=== PATIENT | male | born 1975 | race Caucasian/White ===

== ENCOUNTER 2016-10-15 12:25 | Emergency (ER) | payer OTHER ==
[~2016-10-15] VITALS: Ht 180.3 cm; Wt 83.9 kg
[~2016-10-15 12:25] MED LIST: PROM25TA10 PO
[2016-10-15] MEDS ORDERED: CEPH-263 PO (14:04)
[2016-10-15] MEDS ORDERED: CLIN300C8 PO (14:04)
--- NOTE | 2016-10-15 14:05 | PHYS DOC ---
Past Medical History Past Medical History: No Pertinent History Past Surgical History: Tonsillectomy Additional Information: 0.5 PPD Alcohol Use: Occasionally Drug Use: None Adult General Chief Complaint Chief Complaint: ELBOW PROBLEM HPI HPI 40-year-old male presenting with pain and redness in his right elbow. This started approximately 2 days ago. The pain is mild intermittent worse with movement of the extremity. And without alleviating factors. He denies fevers home. He denies nausea vomiting numbness weakness or tingling. Review of systems is negative for chest pain shortness of breath, nausea vomiting fevers or chills. All other review of systems is negative unless otherwise noted in history of present illness. ED course: 40-year-old gentleman presenting with redness and swelling in his right elbow. Pertinent physical examination shows erythema of the external flexor region of his elbow consistent with cellulitis versus bursitis. Patient was prescribed oral clindamycin to follow-up with primary care doctor in the next 2-3 days for reevaluation. The patient was then discharged home in stable condition to follow up with their primary care physician over the next 2-3 days. They were to return if their symptoms worsened or if they were concerned for any reason. Ieau-ne-wemp discharge instructions and return precautions were given. Patient's questions were answered to their satisfaction. Patient is comfortable plan. Review of Systems Review of Systems SEE ABOVE. Allergies Allergies Allergies Coded Allergies Type Severity Reaction Last Updated Verified No Known Drug Allergies 02/29/16 No Physical Exam Physical Exam SEE ABOVE Constitutional: Well developed, well nourished, no acute distress, non-toxic appearance. [] HENT: Normocephalic, atraumatic, bilateral external ears normal, oropharynx moist, no oral exudates, nose normal. [] Eyes: PERRLA, EOMI, conjunctiva normal, no discharge. [] Neck: Normal range of motion, no tenderness, supple, no stridor. [] Cardiovascular:Heart rate regular rhythm, no murmur [] Lungs & Thorax: Bilateral breath sounds clear to auscultation [] Abdomen: Bowel sounds normal, soft, no tenderness, no masses, no pulsatile masses. [] Skin: Warm, dry, no erythema, no rash. [] Back: No tenderness, no CVA tenderness. [] Extremities: Right upper extremity is warm and well perfused with palpable pulse. 2 second cap refill distally with normal sensation of the hand. Right elbow exam see above. Minimal pain with passive extension of the patient's elbow. Patient is able to flex his elbow without pain. Macular rash on the external surface of the elbow. Neurologic: Alert and oriented X 3, normal motor function, normal sensory function, no focal deficits noted. [] Psychologic: Affect normal, judgement normal, mood normal. [] Current Patient Data Vital Signs Vital Signs Date Time Temp Pulse Resp B/P (MAP) Pulse Ox O2 Delivery O2 Flow Rate FiO2 10/15/16 12:43 98.6 74 14 120/81 (94) 98 Room Air 98.6 EKG EKG [] Radiology/Procedures Radiology/Procedures [] Course & Med Decision Making Course & Med Decision Making Pertinent Labs and Imaging studies reviewed. (See chart for details) [] Dragon Disclaimer Dragon Disclaimer This electronic medical record was generated, in whole or in part, using a voice recognition dictation system. Departure Departure Impression: Primary Impression: Cellulitis Additional Impression: Bursitis Disposition: HOME, SELF-CARE Condition: STABLE Referrals: NO PCP (PCP) MORALES BERRY MD Patient Instructions: Bursitis, Cellulitis Additional Instructions: Thank you for allowing us to participate in your care today. Followup with your primary care physician in 3 days if your symptoms do not improve. Call your Primary Doctor tomorrow and inform them of your visit today. If you do not have a primary care provider you can ask for a list of our primary care providers. Return to the emergency department you have any new or concerning findings. This should be evaluated by the primary care physician and any necessary consulting services for continued management within a few days after discharge. Return to emergency room if you have any new or concerning symptoms including but not limited to fever, chills, nausea, vomiting, intractable pain, any new rashes, chest pain, shortness of air, uncontrolled bleeding, difficulty breathing, and/or vision loss. Scripts Cephalexin (KEFLEX) 250 Mg Capsule 1 CAP PO QID, #28 CAP Prov: YEN RODRIGUEZ MD 10/15/16 Clindamycin Hcl (CLINDAMYCIN HCL) 300 Mg Capsule 1 CAP PO TID, #21 CAP Prov: YEN RODRIGUEZ MD 10/15/16 Problem Qualifiers YEN RODRIGUEZ MD Oct 15, 2016 14:05
[2016-10-15 14:16] VITALS: BP 120/78
== END 2016-10-15 14:17 | disposition home or self-care (01) ==
LOC: ER 12:25
DX: L03.115 Cellulitis of right lower limb (principal); M70.31 Other bursitis of elbow, right elbow; F17.200 Nicotine dependence, unspecified, uncomplicated; Y93.89 Activity, other specified
CPT/HCPCS: 99281

== ENCOUNTER → 2016-12-05 | Outpatient (CLI) | payer SELFPAY ==
[~2016-12-05] MED LIST changes: +CEPH-263 PO; +CLIN300C8 PO
== END | disposition home or self-care (01) ==
LOC: LAB 07:05
DX: Z02.9 Encounter for administrative examinations, unspecified (principal)
CPT/HCPCS: 36415

== ENCOUNTER 2018-10-05 06:31 | Emergency (ER) | payer OTHER ==
[~2018-10-05] VITALS: Ht 180.3 cm; Wt 90.7 kg
[2018-10-05 07:03] VITALS: BP 112/74
[2018-10-05] MEDS ORDERED: methylPREDNISolone ACETATE 80 MG/ML VIAL. INT ART ONE (08:00)
[2018-10-05] MEDS ORDERED: LIDOCAINE 1% PF 5 ML VIAL. INJ ONE (08:00)
[2018-10-05] MEDS ORDERED: NAPR-514 PO (08:27)
--- NOTE | 2018-10-05 08:27 | PHYS DOC ---
Past Medical History Past Medical History: No Pertinent History Past Surgical History: Tonsillectomy Alcohol Use: Occasionally Drug Use: None Adult General Chief Complaint Chief Complaint: KNEE INJURY HPI HPI 42-year-old male presents with left knee pain. He states he twisted his knee several days ago and now is having some pain. He states the pain is worse when he tries to fully extend his leg at the knee. He denies any significant swelling. There was no blunt force trauma to the knee.[] Review of Systems Review of Systems Constitutional: Denies fever or chills [] Eyes: Denies change in visual acuity, redness, or eye pain [] HENT: Denies nasal congestion or sore throat [] Respiratory: Denies cough or shortness of breath [] Cardiovascular: No additional information not addressed in HPI [] GI: Denies abdominal pain, nausea, vomiting, bloody stools or diarrhea [] : Denies dysuria or hematuria [] Musculoskeletal: Per history of present illness[] Integument: Denies rash or skin lesions [] Neurologic: Denies headache, focal weakness or sensory changes [] Endocrine: Denies polyuria or polydipsia [] All other systems were reviewed and found to be within normal limits, except as documented in this note. Current Medications Current Medications Current Medications Medications (Trade) Dose Ordered Sig/[facility] Start Time Stop Time Status Last Admin Dose Admin Lidocaine HCl (Xylocaine-Mpf 1% 5ml Vial) 5 ml 1X ONCE 10/05/18 08:00 10/05/18 08:04 DC 10/05/18 08:15 5 ML Methylprednisolone Acetate (DEPO-Medrol 80MG VIAL) 80 mg 1X ONCE 10/05/18 08:00 10/05/18 08:04 DC 10/05/18 08:14 80 MG Allergies Allergies Allergies Coded Allergies Type Severity Reaction Last Updated Verified No Known Drug Allergies 02/29/16 No Physical Exam Physical Exam Constitutional: Well developed, well nourished, mild distress, non-toxic appearance. [] HENT: Normocephalic, atraumatic, bilateral external ears normal, oropharynx moist, no oral exudates, nose normal. [] Eyes: PERRLA, EOMI, conjunctiva normal, no discharge. [] Neck: Normal range of motion, no tenderness, supple, no stridor. [] Cardiovascular:Heart rate regular rhythm, no murmur [] Lungs & Thorax: Bilateral breath sounds clear to auscultation [] Abdomen: Bowel sounds normal, soft, no tenderness, no masses, no pulsatile masses. [] Skin: Warm, dry, no erythema, no rash. [] Back: No tenderness, no CVA tenderness. [] Extremities: Left knee is tender to palp, no significant swelling or erythema, there is limitation to range of motion secondary to pain. [] Neurologic: Alert and oriented X 3, normal motor function, normal sensory function, no focal deficits noted. [] Psychologic: Affect normal, judgement normal, mood normal. [] Current Patient Data Vital Signs Vital Signs Date Time Temp Pulse Resp B/P (MAP) Pulse Ox O2 Delivery O2 Flow Rate FiO2 10/05/18 07:03 97.8 87 20 112/74 (87) Room Air 97.8 EKG EKG [] Radiology/Procedures Radiology/Procedures [] Course & Med Decision Making Course & Med Decision Making Pertinent Labs and Imaging studies reviewed. (See chart for details) [Procedure: Left knee intra-articular injection The left knee was prepped with Betadine and marked. Using 80 mg of Depo-Medrol and 5 mL of 1% lidocaine with a 25-gauge inch and a half needle the medicine was injected into the knee without difficulty. Patient had immediate relief of his symptoms. The needle was removed and a bandage was placed. Patient tolerated procedure well.] Dragon Disclaimer Dragon Disclaimer This electronic medical record was generated, in whole or in part, using a voice recognition dictation system. Departure Departure Impression: Primary Impression: Left knee pain Disposition: HOME, SELF-CARE Condition: IMPROVED Referrals: NO PCP (PCP) CHAVA DOWD MD If there is no improvement in the pain please call Dr. Collins for follow-up appointment Patient Instructions: Knee Pain Additional Instructions: Return to the emergency department with any new or concerning symptoms Scripts Naproxen (NAPROXEN) 500 Mg Tablet 1 TAB PO BID PRN for PAIN, #30 TAB 1 Refill Prov: JULIAN MOSER DO 10/05/18 Problem Qualifiers Primary Impression: Left knee pain Chronicity: acute Qualified Codes: M25.562 - Pain in left knee JULIAN MOSER DO Oct 05, 2018 08:27
[2018-10-06] MEDS ORDERED: NAPR-514 PO (11:55)
== END 2018-10-05 08:38 | disposition home or self-care (01) ==
LOC: ER 06:31
DX: M25.562 Pain in left knee (principal); Z90.89 Acquired absence of other organs
CPT/HCPCS: 20552; 99284; J1040

== ENCOUNTER 2018-10-06 10:10 | Emergency (ER) | payer OTHER ==
[~2018-10-06] VITALS: Ht 180.3 cm; Wt 90.7 kg
[~2018-10-06 10:10] MED LIST changes: +NAPR-514 PO
[2018-10-06 10:28] VITALS: BP 143/96
--- NOTE | 2018-10-06 11:17 | PHYS DOC ---
Past Medical History Past Medical History: No Pertinent History Past Surgical History: Tonsillectomy Smoking: Cigarettes, Less than 1pk/day Alcohol Use: Occasionally Drug Use: None Adult General Chief Complaint Chief Complaint: LOWER EXT PAIN HPI HPI Patient is a 42 year old male who presents with left knee pain has been ongoing since Thursday. The patient was seen here at the ER yesterday and given a knee injection. States injection wore off and he still hurts. States his pain is progressively getting worse and rates his pain as 6 out of 10 today as opposed to 5 out of 10 yesterday. Review of Systems Review of Systems Constitutional: Denies fever or chills [] Eyes: Denies change in visual acuity, redness, or eye pain [] HENT: Denies nasal congestion or sore throat [] Respiratory: Denies cough or shortness of breath [] Cardiovascular: No additional information not addressed in HPI [] GI: Denies abdominal pain, nausea, vomiting, bloody stools or diarrhea [] : Denies dysuria or hematuria [] Musculoskeletal: Denies back pain but reports L knee pain. Integument: Denies rash or skin lesions [] Neurologic: Denies headache, focal weakness or sensory changes [] Endocrine: Denies polyuria or polydipsia [] Complete systems were reviewed and found to be within normal limits, except as documented in this note. Allergies Allergies Allergies Coded Allergies Type Severity Reaction Last Updated Verified No Known Drug Allergies 02/29/16 No Physical Exam Physical Exam Constitutional: Well developed, well nourished, no acute distress, non-toxic appearance. [] HENT: Normocephalic, atraumatic, bilateral external ears normal, oropharynx moist, no oral exudates, nose normal. [] Eyes: PERRLA, EOMI, conjunctiva normal, no discharge. [] Neck: Normal range of motion, no tenderness, supple, no stridor. [] Cardiovascular:Heart rate regular rhythm, no murmur [] Lungs & Thorax: Bilateral breath sounds clear to auscultation [] Abdomen: Bowel sounds normal, soft, no tenderness, no masses, no pulsatile masses. [] Skin: Warm, dry, no erythema, no rash. [] Back: No tenderness, no CVA tenderness. [] Extremities: Tenderness to L knee, no cyanosis, no clubbing, ROM reduced, no edema. [] Neurologic: Alert and oriented X 3, normal motor function, normal sensory function, no focal deficits noted. [] Psychologic: Affect normal, judgement normal, mood normal. [] Current Patient Data Vital Signs Vital Signs Date Time Temp Pulse Resp B/P (MAP) Pulse Ox O2 Delivery O2 Flow Rate FiO2 10/06/18 10:28 98.3 102 16 143/96 (112) 97 Room Air 98.3 EKG EKG [] Radiology/Procedures Radiology/Procedures []PATIENT: ESCOBAR HUGGINSOUNT: [id number]#: [id number] : 1975 LOCATION: ER AGE: 42 SEX: M EXAM STATUS: REG ER ORD. PHYSICIAN: MORALES KESSLER APRN REASON: tenderness/pain x 2 days no known injury PROCEDURE: KNEE LEFT 3V Examination: KNEE LEFT 3V History: Tenderness and pain Comparison/Correlation: None Findings: Total 3 images of the left knee were obtained. Joint spaces are normal. Small knee joint effusion is present. No fracture or bony destruction. Soft tissues are unremarkable. Impression: Small joint effusion. Electronically signed by: Wilfredo Crowley MD (10/06/2018 11:21 AM) [id number] Course & Med Decision Making Course & Med Decision Making Pertinent Labs and Imaging studies reviewed. (See chart for details) Patient request x-ray of the knee today, will order one. Will give Toradol. X-ray shows joint effusion. Will have follow up with orthopedics as he has already scheduled Dragon Disclaimer Dragon Disclaimer This electronic medical record was generated, in whole or in part, using a voice recognition dictation system. Departure Departure Impression: Primary Impression: Knee pain, acute Disposition: 01 HOME, SELF-CARE Condition: STABLE Referrals: NO PCP (PCP) Patient Instructions: Knee Effusion Additional Instructions: Thank you for visiting [facility]. We appreciate you trusting us with your care. If any additional problems come up don't hesitate to return to visit us. Please follow up with your primary care provider so they can plan additional care if needed and know about the problem that you had. If symptoms worsen come back to the Emergency Department. Any concerning symptoms that start such as chest pain, shortness of Air, weakness or numbness on one side of the body, running high fevers or any other concerning symptoms return to the ER. Please fill your medications at any pharmacy and follow the prescription instructions. Please follow up with orthopedics as you have previously scheduled. Scripts Naproxen (NAPROXEN) 500 Mg Tablet 1 TAB PO BID PRN for INFLAMMATION, #60 TAB Prov: MORALES KESSLER APRN 10/06/18 Problem Qualifiers Primary Impression: Knee pain, acute Laterality: right Qualified Codes: M25.561 - Pain in right knee MORALES KESSLER APRN Oct 06, 2018 11:17
--- NOTE | 2018-10-06 11:24 | RAD ---
Examination: KNEE LEFT 3V History: Tenderness and pain Comparison/Correlation: None Findings: Total 3 images of the left knee were obtained. Joint spaces are normal. Small knee joint effusion is present. No fracture or bony destruction. Soft tissues are unremarkable. Impression: Small joint effusion. Electronically signed by: Wilfredo Crowley MD (10/06/2018 11:21 AM) [id number]
[2018-10-06] MEDS ORDERED: NAPR-514 PO (11:55)
[2018-10-06] MEDS ORDERED: KETOROLAC 30 MG/ML VIAL. IM ONE (12:00)
== END 2018-10-06 12:03 | disposition home or self-care (01) ==
LOC: ER 10:10
DX: M25.562 Pain in left knee (principal); M25.462 Effusion, left knee; F17.210 Nicotine dependence, cigarettes, uncomplicated
CPT/HCPCS: 73562; 96372; 99284; J1885; 99283

== ENCOUNTER → 2018-10-25 | Outpatient (CLI) | payer OTHER ==
[2018-10-06 10:28] VITALS: BP 143/96
--- NOTE | 2018-10-25 10:13 | KCIC ---
Examination: MRI of the left knee without contrast HISTORY: History of left knee pain COMPARISON: None available Technique: Multiplanar, multisequence MR imaging of the left knee was performed without contrast. FINDINGS: The anterior cruciate ligament, posterior cruciate ligament appears intact. The medial meniscus, lateral meniscus appear intact. The extensor mechanism is intact. The medial collateral and lateral collateral ligamentous complex including the fibular collateral ligament, biceps femoris tendon, popliteus tendon appear intact. Small knee joint effusion is identified. The medial retinaculum, lateral retinaculum appear intact. There is mild lateral tilting of the patella with fissuring of cartilage identified in the lateral patellofemoral compartment with subchondral cystic changes identified in the lateral patellar facet. The TG-TT distance is 18 mm. There is minimal increased T2 signal identified in the lateral Hoffa's fat. Small knee joint effusion. Mild joint space loss identified in the medial, lateral, patellofemoral compartments. Minimal superficial fraying of cartilage in the medial, lateral compartment IMPRESSION: 1. 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 Correlate for patellar maltracking. 2. Small knee joint effusion. Electronically signed by: Carlos Barry MD (10/25/2018 10:10 AM) [id number]
== END | disposition home or self-care (01) ==
LOC: KCIC MRI 09:01
PROVIDERS: ATTEND Orthopaedic Surgery
DX: M25.462 Effusion, left knee (principal); M22.42 Chondromalacia patellae, left knee
CPT/HCPCS: 73721